=== PATIENT | female | born 2005 | race Caucasian/White ===

== ENCOUNTER 2023-07-23 11:34 | Emergency (ER) | payer OTHER ==
[~2023-07-23] VITALS: Ht 172.7 cm; Wt 81.6 kg
[2023-07-23 11:43] VITALS: BP 141/86; TEMP 98
[2023-07-23 12:46] VITALS: O2SAT 98
== END 2023-07-23 12:47 | disposition home or self-care (01) ==
LOC: ER 11:40
DX: Z02.89 Encounter for other administrative examinations (principal); V89.2XXA Person injured in unspecified motor-vehicle accident, traffic, initial encounter; Y93.89 Activity, other specified; Y92.89 Other specified places as the place of occurrence of the external cause; Y99.8 Other external cause status